=== PATIENT | female | born 1975 | race Caucasian/White ===

== ENCOUNTER → 2018-11-26 | Outpatient (CLI) | payer OTHER ==
[~2018-11-26] MED LIST: HAWT150C PO; METR70GE2 VA; MULT-16; MULT1CAP59 PO
== END ==
LOC: LAB 10:13
PROVIDERS: ATTEND Obstetrics & Gynecology
DX: N94.9 Unspecified condition associated with female genital organs and menstrual cycle (principal)
CPT/HCPCS: 87210